=== PATIENT | male | born 1990 | race Caucasian/White ===

== ENCOUNTER 2018-10-30 18:42 | Emergency (ER) | payer OTHER ==
--- NOTE | 2018-10-30 20:03 | RAD ---
LEFT INDEX FINGER THREE VIEWS: 10/30/18 HISTORY: Injury. There is soft tissue injury to the finger. I do not see an underlying fracture. IMPRESSION: No evidence of fracture. POS: [facility]
[2018-10-30] MEDS ORDERED: HYDROcodone/Acetaminophen 7.5/325 mg Tablet ONE (20:17)
== END 2018-10-30 23:11 | disposition home or self-care (01) ==
LOC: ERS 18:42
DX: S60.411A Abrasion of left index finger, initial encounter (principal); W23.0XXA Caught, crushed, jammed, or pinched between moving objects, initial encounter
CPT/HCPCS: 29130